=== PATIENT | male | born 1990 | race Caucasian/White ===

== ENCOUNTER 2022-11-25 15:23 | Emergency (ER) | payer SELFPAY ==
[~2022-11-25] VITALS: Ht 162.6 cm; Wt 87.0 kg
[2022-11-25] MEDS ORDERED: KETOROLAC 30MG/ML VIAL IV STA (16:10)
[2022-11-25] MEDS ORDERED: ONDANSETRON HCL 4MG/2ML INJ IV STA (16:10)
[2022-11-25] MEDS ORDERED: SODIUM CHLORIDE 0.9% 1,000 ML IV ONE (16:15)
[2022-11-25] MEDS ORDERED: LEVETIRACETAM 500MG PREMIX 100 ML IV ONE (16:15)
[2022-11-25 16:19] LABS: CLARITY URINE CLEAR (CLEAR); COLOR URINE YELLOW (YELLOW); KETONES URINE NEGATIVE (NEGATIVE); LEUKOCYTE ESTERASE URINE NEGATIVE (NEGATIVE); NITRITE URINE NEGATIVE (NEGATIVE); OCCULT BLOOD URINE TRACE (NEGATIVE); PH URINE 7.5 (4.5-8.0); PROTEIN URINE NEGATIVE (NEGATIVE); SPECIFIC GRAVITY URINE 1.005 (1.005-1.030); UROBILINOGEN URINE 0.2 E.U./dL (0.2-1.0)
[2022-11-25 16:22] LABS: HEMATOCRIT. 42.1 % (42.0-52.0); HEMOGLOBIN. 14.6 g/dL (14.0-18.0); MEAN CORPUSCULAR VOLUME 83.8 fL (80.0-94.0); PLATELET 92 x1000/uL (130-400); RED BLOOD CELL COUNT 5.03 mill/uL (4.7-6.1); RED CELL DISTRIBUTION WIDTH 13.5 % (11.6-14.6)
[2022-11-25 16:27] LABS: CHLORIDE 103 mEq/L (98-107)
[2022-11-25] MEDS ORDERED: LORAZEPAM 2MG/ML CPJ IV ONE (16:30)
[2022-11-25 16:32] LABS: PARTIAL THROMBOPLASTIN TIME 29.1 sec (23.4-31.0); PROTHROMBIN TIME 10.5 sec (9.6-11.0)
[2022-11-25 16:49] LABS: PLATELET ESTIMATE DECREASED
[2022-11-25 17:18] LABS: *AMPHETAMINES SCREEN URINE NEGATIVE (NEGATIVE); *BARBITURATES SCREEN URINE NEGATIVE (NEGATIVE); *BENZODIAZEPINES SCREEN URINE NEGATIVE (NEGATIVE); *COCAINE SCREEN URINE NEGATIVE (NEGATIVE); CANNABINOID URINE SCREEN NEGATIVE (NEGATIVE); METHADONE URINE SCREEN NEGATIVE (NEGATIVE); OPIATES URINE SCREEN NEGATIVE (NEGATIVE); PHENCYCLIDINE URINE SCREEN NEGATIVE (NEGATIVE)
[2022-11-25 17:28] LABS: ETHANOL BLOOD 405 mg/dL (-10)
[2022-11-25] MEDS ORDERED: POTASSIUM CHLORIDE 20MEQ TABLET SR PO ONE (18:15)
[2022-11-25] MEDS ORDERED: KEPP500 MT (20:24)
[2022-11-25 21:48] VITALS: BP 118/78
== END 2022-11-25 21:51 | disposition home or self-care (01) ==
LOC: ER 15:23
DX: S00.511A Abrasion of lip, initial encounter (principal); F10.129 Alcohol abuse with intoxication, unspecified; R56.9 Unspecified convulsions; R10.13 Epigastric pain; X58.XXXA Exposure to other specified factors, initial encounter; Y93.89 Activity, other specified; Y92.89 Other specified places as the place of occurrence of the external cause; Y99.8 Other external cause status; Y90.8 Blood alcohol level of 240 mg/100 ml or more
CPT/HCPCS: 36415; 70450; 71045; 74176; 80053; 80305; 80320; 81003; 83690; 83735; 83880; 84484; 85025; 85610; 85730; 93005; 96365; 96375; 99285; J1885; J1953; J2060; J2405; J7030; Z7610; G0480